=== PATIENT | female | born 1985 | race African-American/Black ===

== ENCOUNTER 2017-04-02 23:38 | Emergency (ER) | payer OTHER ==
[~2017-04-02] VITALS: Ht 172.7 cm; Wt 66.0 kg
[2017-04-03] MEDS ORDERED: HYDROCORTISONE 1% RECTAL CREAM 30GM PR SCH (01:30)
[2017-04-03] MEDS ORDERED: KETOROLAC 60MG/2ML VIAL IM ONE (01:30)
[2017-04-03] MEDS ORDERED: HYDROCODONE/ACETAMINOPHEN 5/325MG TABLET PO ONE (01:30)
[2017-04-03 02:32] VITALS: BP 121/56
== END 2017-04-03 03:08 | disposition home or self-care (01) ==
LOC: ER 04-03 00:10
DX: K64.4 Residual hemorrhoidal skin tags (principal); F17.210 Nicotine dependence, cigarettes, uncomplicated; F12.90 Cannabis use, unspecified, uncomplicated
CPT/HCPCS: 96372; 99283; J1885; Z7610